=== PATIENT | male | born 1955 | race Caucasian/White ===

== ENCOUNTER 2017-01-06 14:30 | Observation (INO) | payer BC ==
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
--- NOTE | ~2017-01-06 | DS ---
Discharge Summary [facility] [address] [place]. [address] NAME: RUTHY CHANG : 55 STATUS : DIS [facility] PAT#: [id number] AGE: 61 ADM/REG DATE : 01/06/17 MR#: [id number] REPORT SERV DATE: 01/09/17 DICTATED BY: LOLA VIGIL DATE: 01/08/17 REPORT STATUS : Draft TRANSCRIBED BY: MODL DATE: 01/08/17 ADMISSION DATE: 01/06/2017 DISCHARGE DATE: 01/07/2017 REASON FOR ADMISSION: This is 61-year-old male who had come in to his primary care's office with chief complaint of palpitations, he would be found to have to be tachycardic with a heart rate of 150 and an EKG which indicated atrial fibrillation with RVR and so he was sent to [facility] for direct admission. DISCHARGE DIAGNOSES: 1. Paroxysmal atrial fibrillation with rapid ventricular response. 2. Hypertension. 3. Chronic obstructive pulmonary disease. 4. Obstructive sleep apnea. HOSPITAL COURSE: 1. Paroxysmal atrial fibrillation with RVR. The patient had converted to normal sinus rhythm when he had arrived to the hospital for admission, and he had no further episodes of atrial fibrillation while here at the hospital. He did have one brief complaint of palpitations while here at the hospital though. The patient did have elevated blood pressures while here at the hospital, with his blood pressure running 149/108 on admission and then systolically running 160s to 170s and 80s to 90s after that admission blood pressure, so therefore, we made the decision to go ahead and start the patient on Coreg to provide for rate control with atrial fibrillation and blood pressure control as well. The patient has a CHADS2 score of 1, so anticoagulation is not necessary, do recommend him being on baby aspirin. He has a family history of coronary artery disease. Father had I believe bypass surgery, and the patient apparently has never had a stress test. He was, however, recently at home helping moved heavy boxes up the stairs and did not experience any chest pain or palpitations during those activities, just some fatigue after completing the activities, but I do think it would be worthwhile to have him follow up with Cardiology outpatient regarding both atrial fibrillation and palpitations and consider having a stress test. The patient has had no active chest pain before or during hospitalization. We did check troponin levels on him x2 and both were within normal limits. His EKG did not show any ST changes which would indicate ischemia. We did also do an echocardiogram while he was here at the hospital which showed a normal LVEF of 60% and just mild valvular regurgitation, but no significant valve disease and normal atrial and ventricle sizes. 2. COPD. The patient does abuse albuterol at home p.r.n. Certainly possible that this could influence his atrial fibrillation. However, the patient had not used it recently before having the episode of atrial fibrillation with RVR. His respiratory status is at baseline. 3. Obstructive sleep apnea. We did do an overnight oximetry study which did reveal multiple desaturation events, so it does appear that he does have obstructive sleep apnea. Apparently, this had already been suspected and he has a sleep study coming up that has already been scheduled. His O2 saturations spent a significant amount of time below 88%, so he does not need home oxygen at night, but likely will need BiPAP which Discharge Summary [address] [address] NAME: RUTHY CHANG : 55 STATUS : DIS [facility] PAT#: [id number] AGE: 61 ADM/REG DATE : 01/06/17 MR#: [id number] REPORT SERV DATE: 01/09/17 DICTATED BY: LOLA VIGIL DATE: 01/08/17 REPORT STATUS : Draft TRANSCRIBED BY: ANISH DATE: 01/08/17 can be evaluated at the outpatient sleep study. We did also check electrolytes and TSH while the patient was here at the hospital. His potassium and magnesium were within normal limits, as was his TSH. DISCHARGE CONDITION: Stable. DISCHARGE MEDICATIONS: 1. Coreg 3.125 mg p.o. b.i.d. 2. Anoro Ellipta one puff inhaled daily. 3. Bushra 180 mg p.o. daily. 4. Albuterol p.r.n. 5. Trintellix 5 mg p.o. daily. 6. Aspirin 81 mg p.o. daily. DISCHARGE PLAN: The patient is discharged to home. He is to follow up with his primary care, Dr. Valencia, in the next one to two weeks, and I will try to arrange for followup with [facility]iology [facility] in the next two to three weeks. This dictation was done in collaboration with Dr. Lola Vigil. Total discharge time greater than 30 minutes. ANAMARIA/GREGL Amos Cerda APN Lola Vigil M.D. / [id number] CC: Rico Moralez M.D. [facility]
[2017-01-06] MEDS ORDERED: ANOROELLIPTA INH (16:08)
[2017-01-06] MEDS ORDERED: ALLEGRA180 PO (16:09)
[2017-01-06] MEDS ORDERED: PROAIR HFA INH (16:09)
[2017-01-06] MEDS ORDERED: INHALER SAMPLE (16:13)
[2017-01-06] MEDS ORDERED: TRINTELLIX5 MG PO (16:14)
[2017-01-06 18:21] LABS: BASOPHILS 0.6 %; BASOPHILS ABSOLUTE 0.04 10/3/uL (0.0-0.16); EOSINOPHILS 3.1 %; EOSINOPHILS ABSOLUTE 0.22 10/3/uL (0.0-0.53); HEMATOCRIT 45.5 % (40.0-51.0); HEMOGLOBIN 15.9 g/dL (13.6-17.8); IMMATURE GRANULOCYTES 0.1 %; IMMATURE GRANULOCYTES ABSOLUTE 0.01 10/3/uL (0.0-0.11); LYMPHOCYTES 24.6 %; LYMPHOCYTES ABSOLUTE 1.73 10/3/uL (0.67-4.30); MANUAL DIFF NO %; MEAN CORPUS HGB CONC 34.9 g/dL (32.0-36.0); MEAN CORPUSCULAR HEMOGLOB 31.2 pg (26.0-34.0); MEAN CORPUSCULAR VOLUME 89.2 fL (80-100); MEAN PLATELET VOLUME 9.3 fL (9.2-13.0); MONOCYTES 6.7 %; MONOCYTES ABSOLUTE 0.47 10/3/uL (0.21-1.20); NEUTROPHILS 64.9 %; NEUTROPHILS ABSOLUTE 4.56 10/3/uL (2.02-8.40); PLATELET COUNT 259 10/3/uL (150-400); RBC DISTRIBUTION WIDTH 13.4 % (12.0-16.0)
[2017-01-06 18:23] LABS: INTERNATIONAL NORMAL RATI 1.1 UNITS (-); PARTIAL THROMBO TIME 30.9 SEC (22.5-37.2); PROTIME (NOT ORD) 13.8 SEC (12.0-14.5)
[2017-01-06 18:39] LABS: BUN (BLOOD UREA NITROGEN) 17 MG/DL (6-23); CHLORIDE, SERUM 107 MMOL/L (96-112); CO2 (CARBON DIOXIDE) 30 MMOL/L (24-34); FREE T4 0.82 NG/DL (0.76-1.46); GFR AFRICAN AMERICAN 84 ML/MIN (>=60); GFR NON AFRICAN AMERICAN 72 ML/MIN (>=60); POTASSIUM, SERUM 4.5 MMOL/L (3.5-5.3); SODIUM, SERUM 141 MMOL/L (135-148); TROPONIN I <0.02 NG/ML (<0.05)
[2017-01-06 18:40] LABS: GLUCOSE, SERUM 115 MG/DL (60-99)
[2017-01-07] MEDS ORDERED: ASAB PO (14:55)
[2017-01-07] MEDS ORDERED: COREG3 PO (14:56)
== END 2017-01-07 17:52 | disposition home or self-care (01) ==
LOC: ENRESERV → ENRESERVDT → ENRESERVTM → 7NO 15:06
PROVIDERS: Hospitalist
DX: I48.0 Paroxysmal atrial fibrillation (principal); I10 Essential (primary) hypertension; J44.9 Chronic obstructive pulmonary disease, unspecified; G47.33 Obstructive sleep apnea (adult) (pediatric); L30.9 Dermatitis, unspecified; F32.9 Major depressive disorder, single episode, unspecified; E66.9 Obesity, unspecified; Z79.82 Long term (current) use of aspirin; Z79.899 Other long term (current) drug therapy; Z87.891 Personal history of nicotine dependence
CPT/HCPCS: 80048; 83735; 83880; 84439; 84443; 84484; 85025; 85610; 85730; 94762; 96372; A9270-GY; C8929; G0378; Q9957